=== PATIENT | female | born 1985 | race African-American/Black ===

== ENCOUNTER 2022-02-04 13:25 | Outpatient (CLI) | payer BC | END 2022-02-04 13:26 | disposition home or self-care (01) | LOC: CSHLAB 13:25 | PROVIDERS: ATTEND Student in an Organized Health Care Education/Training Program | DX: Z20.822 Contact with and (suspected) exposure to COVID-19 (principal) | CPT/HCPCS: U0003; U0005 ==

== ENCOUNTER 2022-02-06 10:54 | Inpatient (IN) | payer BC ==
[2022-02-06] MEDS ORDERED: Bupivacaine/Epinephrine 0.25% 30 ML VIAL ONE (14:32)
[2022-02-06 22:30] VITALS: BMI 41.3
[2022-02-06] MEDS: Lactated Ringer's 1,000 ML IV SCH (23:00)
[2022-02-06] MEDS ORDERED: Misoprostol 200 MCG TAB PR PRN (23:42)
[2022-02-06] MEDS ORDERED: Methylergonovine 0.2 MG/ML VIAL IM PRN (23:42)
[2022-02-06] MEDS ORDERED: HYDROcodone/Acetaminophen 5/325 mg Tablet PO PRN (23:42)
[2022-02-06] MEDS ORDERED: Promethazine HCl 25 MG/ML VIAL IM PRN (23:42)
[2022-02-06] MEDS ORDERED: Ibuprofen 800 MG TAB PO PRN (23:42)
[2022-02-06] MEDS ORDERED: Butorphanol Tartrate 1 MG/ML VIAL SLOW IVP PRN (23:42)
[2022-02-06] MEDS ORDERED: Diphenoxylate HCl/Atropine Tablet PO PRN (23:42)
[2022-02-06] MEDS ORDERED: Carboprost 250 MCG/ML AMP IM PRN (23:42)
[2022-02-06] MEDS ORDERED: Ondansetron PF 4 MG/2 ML Vial IVP PRN (23:42)
[2022-02-06] MEDS ORDERED: hydrALAZINE 20 MG/ML VIAL SLOW IVP PRN (23:42)
[2022-02-06] MEDS ORDERED: Acetaminophen 500 MG TAB PO PRN (23:42)
[2022-02-06] MEDS ORDERED: Lidocaine 1% (PF) 30 ML VIAL SC PRN (23:42)
[2022-02-06] MEDS ORDERED: NS w/ Oxytocin 30 units 500 ML IV SCH (23:45)
[2022-02-06 23:58] LABS: Hemoglobin 13.6 g/dL (12.0-15.5); Mean Corpuscular HGB CONC 34.6 g/dL (32.0-36.0); Mean Corpuscular Hemoglobin 31.2 pg (27.0-33.0); Mean Corpuscular Volume 90.1 fl (81.6-98.3); Mean Platelet Volume 10.1 fl (7.4-10.4); Platelet Count 319 10x3/uL (150-450); RBC Distribution Width 13.7 % (11.5-14.5); Red Blood Cell (RBC) Count 4.36 10x6/uL (3.90-5.03); White Blood Cell (WBC) Count 11.9 10x3/uL (3.5-10.5)
[2022-02-07 00:15] LABS: ALT (SGPT) 44 U/L (8-55); AST (SGOT) 24 U/L (5-34); Albumin 3.5 g/dL (3.5-5.0); Alkaline Phosphatase 174 U/L (40-110); Anion Gap 14 mmol/L (10-20); BUN (Urea Nitrogen) 7 mg/dL (7.0-18.7); Bilirubin, Total 0.5 mg/dL (0.2-1.2); Calc. Creatinine Clearance 192 mL/min (70-130); Calcium 9.1 mg/dL (7.8-10.44); Carbon Dioxide 20 mmol/L (22-29); Chloride 105 mmol/L (98-107); Estimated GFR 116; Glucose 96 mg/dL (70-105); Potassium 4.1 mmol/L (3.5-5.1); Protein, Total 6.5 g/dL (6.0-8.3); Sodium 135 mmol/L (136-145)
[2022-02-07 00:30] LABS: HBSAg Index 0.16 S/CO (0-0.99); Hep B Surf Ag Non-Reactive S/CO (NonReactive)
[2022-02-07 00:31] LABS: Syphilis Antibody Nonreactive (Nonreactive); Syphilis Antibody Index 0.06 S/CO (<1.00 Non-Reactive)
[2022-02-07] MEDS: Misoprostol 100 MCG TAB VAG SCH ×4 (00:33→10:59)
[2022-02-07] MEDS: NS w/ Oxytocin 30 units 500 ML IV SCH (14:55)
[2022-02-07] MEDS ORDERED: Fentanyl 2 mcg/Bup 0.1% Cadd 100 ML ONE ×2 (15:43→22:58)
[2022-02-07] MEDS ORDERED: Lidocaine 1% (PF) 30 ML VIAL ONE (23:39)
[2022-02-08] MEDS ORDERED: Methylergonovine 0.2 MG/ML VIAL ONE ×3 (03:38→05:48)
[2022-02-08] MEDS ORDERED: Misoprostol 200 MCG TAB ONE ×2 (03:38→05:31)
[2022-02-08] MEDS ORDERED: Carboprost 250 MCG/ML AMP ONE ×2 (03:39→05:32)
[2022-02-08] MEDS ORDERED: NS w/ Oxytocin 30 units 500 ML ONE (04:42)
[2022-02-08] MEDS ORDERED: CEFAZOLIN 2 GM in Sodium Chloride 0.9% 100 ML IVPB SCH (04:45)
[2022-02-08] MEDS: NS w/ Oxytocin 30 units 500 ML IV SCH (04:46)
[2022-02-08] MEDS ORDERED: Ampicillin 2 GM VIAL ONE (05:17)
[2022-02-08] MEDS: Lactated Ringer's 1,000 ML IV SCH ×2 (05:28→11:14)
[2022-02-08] MEDS ORDERED: Tranexamic Acid 1,000 MG/10 ML VIAL ONE (05:31)
[2022-02-08 05:55] LABS: Hemoglobin 11.6 g/dL (12.0-15.5); Mean Corpuscular Hemoglobin 31.9 pg (27.0-33.0); Mean Corpuscular Volume 90.9 fl (81.6-98.3); Mean Platelet Volume 9.8 fl (7.4-10.4); Platelet Count 245 10x3/uL (150-450); RBC Distribution Width 13.7 % (11.5-14.5); Red Blood Cell (RBC) Count 3.64 10x6/uL (3.90-5.03); White Blood Cell (WBC) Count 23.2 10x3/uL (3.5-10.5)
[2022-02-08 06:32] LABS: ALT (SGPT) 42 U/L (8-55); AST (SGOT) 34 U/L (5-34); Albumin 2.7 g/dL (3.5-5.0); Alkaline Phosphatase 133 U/L (40-110); Anion Gap 16 mmol/L (10-20); BUN (Urea Nitrogen) 7 mg/dL (7.0-18.7); Bilirubin, Total 0.9 mg/dL (0.2-1.2); Calc. Creatinine Clearance 156 mL/min (70-130); Calcium 8.2 mg/dL (7.8-10.44); Carbon Dioxide 15 mmol/L (22-29); Chloride 106 mmol/L (98-107); Estimated GFR 97; Globulin 2.4 g/dL (2.4-3.5); Glucose 152 mg/dL (70-105); Potassium 3.7 mmol/L (3.5-5.1); Protein, Total 5.1 g/dL (6.0-8.3); Sodium 133 mmol/L (136-145)
[2022-02-08 06:33] LABS: D-Dimer Test 5.99 mg/L FEU (0.19-0.50); INR-International Normal Ratio 0.9; PTT 29.8 sec (22.0-33.0)
[2022-02-08 06:56] LABS: MDiff Complete? YES
[2022-02-08 06:58] LABS: Band 11 % (5-11); Lymphocytes 3 % (21-51); Reactive Lymphocytes 1 % (0-10)
[2022-02-08 07:02] LABS: Monocytes 10 % (0-10); Neutrophil 75 % (42-75)
[2022-02-08 07:03] LABS: Large Platelets SLIGHT; Platelet Morphology Comment Appears Adequate
[2022-02-08 07:04] LABS: RBC Morphology Normal
[2022-02-08] MEDS ORDERED: Diphenoxylate HCl/Atropine Tablet PO PRN (07:41)
[2022-02-08 08:41] LABS: Hemoglobin 13.1 g/dL (12.0-15.5); Mean Corpuscular HGB CONC 34.4 g/dL (32.0-36.0); Mean Corpuscular Hemoglobin 31.5 pg (27.0-33.0); Mean Corpuscular Volume 91.6 fl (81.6-98.3); Mean Platelet Volume 9.8 fl (7.4-10.4); Platelet Count 304 10x3/uL (150-450); RBC Distribution Width 13.8 % (11.5-14.5); Red Blood Cell (RBC) Count 4.16 10x6/uL (3.90-5.03); White Blood Cell (WBC) Count 28.6 10x3/uL (3.5-10.5)
[2022-02-08 08:57] LABS: MDiff Complete? YES
[2022-02-08 08:59] LABS: Band 21 % (5-11); Lymphocytes 2 % (21-51); Monocytes 6 % (0-10); Neutrophil 70 % (42-75); Reactive Lymphocytes 1 % (0-10)
[2022-02-08 09:00] LABS: Platelet Morphology Comment Appears Adequate; RBC Morphology Normal
[2022-02-08] MEDS ORDERED: HYDROcodone/Acetaminophen 5/325 mg Tablet PO PRN ×2 (09:07)
[2022-02-08] MEDS ORDERED: Lanolin Ointment 7 GM TUBE TOP PRN (09:07)
[2022-02-08] MEDS ORDERED: Milk Of Magnesia 30 ML UDCUP PO PRN (09:07)
[2022-02-08] MEDS ORDERED: diphenhydrAMINE 25 MG CAP PO PRN (09:07)
[2022-02-08] MEDS ORDERED: hydrALAZINE 20 MG/ML VIAL SLOW IVP PRN (09:07)
[2022-02-08] MEDS ORDERED: Promethazine HCl 25 MG/ML VIAL IM PRN (09:07)
[2022-02-08] MEDS ORDERED: Ondansetron PF 4 MG/2 ML Vial IVP PRN (09:07)
[2022-02-08] MEDS ORDERED: Preparation H Ointment 28 GM TUBE PR PRN (09:07)
[2022-02-08] MEDS ORDERED: Benzocaine-Menthol 82.5 ML CAN TOP PRN (09:07)
[2022-02-08] MEDS ORDERED: Bisacodyl 10 MG SUPP PR PRN (09:07)
[2022-02-08] MEDS ORDERED: Boostrix 0.5 ML (Tdap) VIAL (>/=7 yrs of age) IM ONE (09:07)
[2022-02-08] MEDS ORDERED: Ferrous Sulfate 325 MG TAB PO SCH (09:15)
[2022-02-08] MEDS: Prenatal Vitamin 1 TAB PO SCH (09:58)
[2022-02-08] MEDS: Ibuprofen 800 MG TAB PO SCH ×2 (09:58→17:56)
[2022-02-08] MEDS: Docusate 100 MG CAP PO SCH ×2 (09:59→21:49)
[2022-02-08] MEDS: Ferrous Sulfate 325 MG TAB PO SCH (11:12)
[2022-02-08] MEDS: Misoprostol 100 MCG TAB VAG SCH (11:13)
[2022-02-09] MEDS: Ibuprofen 800 MG TAB PO SCH ×3 (05:41→21:41)
[2022-02-09] MEDS: Ferrous Sulfate 325 MG TAB PO SCH ×2 (08:18→18:06)
[2022-02-09] MEDS: Prenatal Vitamin 1 TAB PO SCH (08:19)
[2022-02-09] MEDS: Docusate 100 MG CAP PO SCH ×2 (08:19→21:41)
[2022-02-10] MEDS: Ibuprofen 800 MG TAB PO SCH ×2 (06:09→13:17)
[2022-02-10] MEDS: Prenatal Vitamin 1 TAB PO SCH (08:01)
[2022-02-10] MEDS: Docusate 100 MG CAP PO SCH (08:01)
[2022-02-10 08:18] VITALS: BP 123/72; TEMP 98
[2022-02-10] MEDS: Ferrous Sulfate 325 MG TAB PO SCH (08:37)
== END 2022-02-10 13:55 | disposition home or self-care (01) | DRG 806 ==
LOC: CSHLD 21:25 → CSHPP 02-08 09:41
PROVIDERS: ADMIT Student in an Organized Health Care Education/Training Program; ATTEND Student in an Organized Health Care Education/Training Program
PROC: 10E0XZZ Delivery of Products of Conception, External Approach (ICD-10-PCS; principal; 2022-02-06)
PROC: 3E0P7VZ Introduction of Hormone into Female Reproductive, Via Natural or Artificial Opening (ICD-10-PCS; 2022-02-07)
PROC: 10907ZC Drainage of Amniotic Fluid, Therapeutic from Products of Conception, Via Natural or Artificial Opening (ICD-10-PCS; 2022-02-07)
DX: O24.425 Gestational diabetes mellitus in childbirth, controlled by oral hypoglycemic drugs (principal); O10.92 Unspecified pre-existing hypertension complicating childbirth; Z37.0 Single live birth; O72.1 Other immediate postpartum hemorrhage; Z3A.38 38 weeks gestation of pregnancy; Z79.84 Long term (current) use of oral hypoglycemic drugs; Z79.82 Long term (current) use of aspirin
CPT/HCPCS: 36415; 36416; 36430; 51702; 80053; 85027; 85049; 85300; 85362; 85379; 85384; 85610; 85730; 86780; 86850; 86900; 86901; 87340; J0595; J2210; J2405; J2590; J3490; J7120; U0003; U0005

== ENCOUNTER 2022-02-14 09:55 | Emergency (ER) | payer BC ==
[2022-02-14] MEDS ORDERED: Iopamidol 370 76% 100 ML VIAL ONE (10:14)
[2022-02-14 11:07] LABS: INR-International Normal Ratio 0.9; PTT 26.2 sec (22.0-33.0); Prothrombin Time 9.8 sec (9.5-12.1)
[2022-02-14 11:09] LABS: #Eosinphils 0.2 10x3/uL (0.0-0.5); #Monocytes 0.9 10x3/uL (0.0-1.1); #Neutrophils 9.6 10x3/uL (1.5-8.4); %Basophils 0.3 % (0.0-2.0); %Eosinophils 1.3 % (0.0-6.0); %Lymphocytes 11.7 % (18.0-47.0); %Neutrophils 78.4 % (40.0-75.0); Hemoglobin 11.3 g/dL (12.0-15.5); Mean Corpuscular HGB CONC 33.7 g/dL (32.0-36.0); Mean Corpuscular Hemoglobin 31.5 pg (27.0-33.0); Mean Corpuscular Volume 93.3 fl (81.6-98.3); Mean Platelet Volume 9.2 fl (7.4-10.4); Platelet Count 453 10x3/uL (150-450); RBC Distribution Width 13.5 % (11.5-14.5); Red Blood Cell (RBC) Count 3.59 10x6/uL (3.90-5.03); White Blood Cell (WBC) Count 12.2 10x3/uL (3.5-10.5)
[2022-02-14 11:11] LABS: ALT (SGPT) 20 U/L (8-55); AST (SGOT) 17 U/L (5-34); Albumin 3.6 g/dL (3.5-5.0); Alkaline Phosphatase 93 U/L (40-110); Anion Gap 13 mmol/L (10-20); BUN (Urea Nitrogen) 11 mg/dL (7.0-18.7); Bilirubin, Total 0.4 mg/dL (0.2-1.2); Calc. Creatinine Clearance 0 mL/min (70-130); Calcium 8.8 mg/dL (7.8-10.44); Carbon Dioxide 25 mmol/L (22-29); Chloride 106 mmol/L (98-107); Estimated GFR 107; Globulin 2.6 g/dL (2.4-3.5); Glucose 85 mg/dL (70-105); Magnesium 1.9 mg/dL (1.6-2.6); Potassium 4.2 mmol/L (3.5-5.1); Protein, Total 6.2 g/dL (6.0-8.3); Sodium 140 mmol/L (136-145)
[2022-02-14 12:08] LABS: Bilirubin Neg (Negative); Blood, Urine 25 (Negative); Clarity Clear (Clear); Glucose, Urine (Dipstick) Normal (Negative); Ketone, Urine Negative (Negative); Leukocyte Negative (Negative); Nitrite Negative (Negative); Protein, Urine (Dipstick) Negative (Neg-Trace); Urobilinogen Normal mg/dL (Less than 2)
[2022-02-14 12:32] LABS: Bacteria/HPF None Seen HPF (None Seen); RBC/HPF None Seen HPF (0-3); Squamous Epithelial 0-3 HPF (0-3); WBC/HPF None Seen HPF (0-3)
== END 2022-02-14 14:18 | disposition home or self-care (01) ==
LOC: CSHERS 09:55
DX: O99.53 Diseases of the respiratory system complicating the puerperium (principal); J90 Pleural effusion, not elsewhere classified; O14.05 Mild to moderate pre-eclampsia, complicating the puerperium; O99.893 Other specified diseases and conditions complicating puerperium; R06.02 Shortness of breath; O99.335 Smoking (tobacco) complicating the puerperium; F17.200 Nicotine dependence, unspecified, uncomplicated
CPT/HCPCS: 71045; 71275; 80053; 81003; 81015; 83735; 84484; 85025; 85610; 85730; 87086; 93005; Q9967